=== PATIENT | female | born 1935 | race Caucasian/White ===

== ENCOUNTER 2016-05-26 16:48 | Inpatient (IN) | payer OTHER ==
[~2016-05-26] VITALS: Ht 170.2 cm; Wt 122.9 kg
[~2016-05-26 16:48] MED LIST: CALCIUM + D3 E1 EACH PO; CEFTIN500 MG PO; CENTRUM SILVER1 EAC3 PO; CIPRO500 MG PO; CLOTRIMAZOLE15 GM TP; COLACE CLEAR50 MG PO; COLACE100 MG PO; COLACE50 MG PO; COUMADIN1 MG PO; DIOVAN160 MG PO; HYZAAR 100-11 TABLET PO; HYZAAR 100-21 TABLET PO; IMDUR30 MG PO; KEFLEX500 MG PO; MEDROL DOSEPAK4 MG PO; PRAVACHOL20 MG PO; PRAVACHOL40 MG PO; SENNA-DOCUSATE1 EAC1 PO; SSD25GM TP; TAMOXIFEN CITRA20 MG PO; TRIAMTERENE-HC1 EACH PO; TYLENOL EXTRA500 MG PO; TYLENOL PM1 CAPLET PO; ULTRAM50 MG PO; VITAMIN D31000 UNIT PO; VITAMIN D32000 UNI1 PO; WARFARIN SODIUM1 MG PO; WARFARIN SODIUM5 MG PO
[2016-05-26 17:01] VITALS: BP 124/66
[2016-05-26 17:31] VITALS: BP 150/82
[2016-05-26 17:55] LABS: CARBON DIOXIDE (BICARBONATE) 32.2 MEQ/L (20-31)
[2016-05-26 18:04] LABS: INFLUENZA A VIRAL ANTIGEN POSITIVE; INFLUENZA B VIRAL ANTIGEN NEGATIVE
[2016-05-26 18:06] LABS: HEMATOCRIT 41.5 % (36.0-46.0); MCH 31.3 PG (29.0-34.0); MCHC 32.8 G/DL (30.0-36.0); MCV 95.6 FL (83-99); MEAN PLAT.VOLUME 10.3 uM^3 (9.5-12.4); PLATELET COUNT 164 K/uL (156-360); RBC DIS.WIDTH-CV 14.8 % (11.8-14.6); RBC DIS.WIDTH-SD 49.8 % (39-53); RED BLOOD COUNT 4.34 M/uL (3.80-5.20); WHITE BLOOD COUNT 5.7 K/uL (4.1-10.2)
[2016-05-26 18:31] VITALS: BP 85/69
[2016-05-26 18:36] LABS: TROP-I INTERPRETATION NEGATIVE; TROPONIN-I 0.01 ng/mL (0.0-0.30)
[2016-05-26 18:38] LABS: CHLORIDE 103 mEq/L (99-109); POTASSIUM 3.8 mEq/L (3.7-5.4); SODIUM 139 mEq/L (136-147)
[2016-05-26 18:40] LABS: GLUCOSE 125 mg/dL (70-99)
[2016-05-26 18:41] LABS: ANION GAP 11 MEQ/L (2-14)
[2016-05-26 18:43] LABS: GFR ESTIMATE (CALCULATED) > 59 mL/min/
[2016-05-26 18:44] LABS: UREA NITROGEN (BUN) 16 mg/dL (9-23)
[2016-05-26 18:45] LABS: ADD MIUA? YES; BILIRUBIN NEGATIVE; BLOOD LARGE; COLOR YELLOW ((YELLOW)); GLUCOSE (STRIP) NEGATIVE; KETONES 5; LEUKOCYTES LARGE; NITRITE POSITIVE; PROTEIN (STRIP) 30; SPECIFIC GRAVITY 1.021 (1.000-1.030); UROBILINOGEN 0.2 MG/DL (0.2-1.0)
[2016-05-26] MEDS ORDERED: TYLENOL EXTRA500 MG PO (18:46)
[2016-05-26] MEDS ORDERED: ROBITUSSIN100 MG/5 M PO (18:46)
[2016-05-26 19:03] LABS: BACTERIA 3+ /HPF; EPITHELIAL CELLS RARE /HPF; HYALINE CASTS 0-5 /LPF; MUCUS 1+ /LPF; RED BLOOD CELLS TNTC /HPF (0-5); UCUL ADDED? YES; WHITE BLOOD CELLS TNTC /HPF (0-5); WHITE BLOOD CELLS CLUMP MANY /HPF (0-5)
[2016-05-26 20:23] LABS: INTER. NORMALIZED RATIO 2.7; PROTHROMBIN TIME 28.2 (9.2-11.2)
[2016-05-26 21:52] VITALS: BP 141/71
[2016-05-27] VITALS: BP 131/63
[2016-05-27 04:14] VITALS: BP 126/83
[2016-05-27 06:47] LABS: HEMATOCRIT 41.2 % (36.0-46.0); MCH 29.8 PG (29.0-34.0); MCHC 30.6 G/DL (30.0-36.0); MCV 97.4 FL (83-99); MEAN PLAT.VOLUME 10.3 uM^3 (9.5-12.4); PLATELET COUNT 152 K/uL (156-360); RBC DIS.WIDTH-CV 15.4 % (11.8-14.6); RBC DIS.WIDTH-SD 54.7 % (39-53); RED BLOOD COUNT 4.23 M/uL (3.80-5.20); WHITE BLOOD COUNT 4.2 K/uL (4.1-10.2)
[2016-05-27 07:02] LABS: INTER. NORMALIZED RATIO 2.2; PROTHROMBIN TIME 23.4 (9.2-11.2)
[2016-05-27 07:06] LABS: ALKALINE PHOSPHATASE 61 IU/L (3-129); ANION GAP 7 MEQ/L (2-14); CHLORIDE 100 MEQ/L (99-109); GFR ESTIMATE (CALCULATED) 56 mL/min/; GLUCOSE 101 mg/dL (70-99); POTASSIUM 3.8 MEQ/L (3.7-5.4); SAMPLE HEMOLYSIS CHECK 0; SAMPLE ICTERIC CHECK 0; SAMPLE LIPEMIA CHECK 0; SODIUM 137 MEQ/L (136-147); TOTAL BILIRUBIN 0.8 MG/DL (0.0-1.0); UREA NITROGEN (BUN) 18 mg/dL (9-23)
[2016-05-27 07:51] VITALS: BP 144/63
[2016-05-27 16:00] VITALS: BP 138/62
[2016-05-27 19:32] VITALS: BP 99/50
[2016-05-27 23:50] VITALS: BP 134/60
[2016-05-28 03:54] VITALS: BP 144/60
[2016-05-28 07:32] VITALS: BP 142/63
[2016-05-28 08:04] LABS: INTER. NORMALIZED RATIO 2.4; PROTHROMBIN TIME 25.4 (9.2-11.2)
[2016-05-28 10:51] VITALS: BP 106/49
[2016-05-28 15:11] VITALS: BP 118/57
[2016-05-28 20:15] VITALS: BP 96/50
[2016-05-29] VITALS: BP 104/51
[2016-05-29 04:00] VITALS: BP 130/57
[2016-05-29 07:17] LABS: INTER. NORMALIZED RATIO 2.8; PROTHROMBIN TIME 29.4 (9.2-11.2)
[2016-05-29 07:51] VITALS: BP 118/58
[2016-05-29 11:15] VITALS: BP 94/51
[2016-05-29 15:12] VITALS: BP 98/58
[2016-05-30] VITALS: BP 118/56
[2016-05-30 07:34] LABS: INTER. NORMALIZED RATIO 3.2; PROTHROMBIN TIME 34.3 (9.2-11.2)
[2016-05-30] MEDS ORDERED: HYDROCHLOROTH12.5 M3 PO (08:18)
[2016-05-30] MEDS ORDERED: OSELTAMIVIR PHO75 MG PO (08:18)
[2016-05-30] MEDS ORDERED: AMOX TR-K CLV1 EAC4 PO (08:18)
[2016-05-30] MEDS ORDERED: DUONEB 2.5-0.5 M3 ML AEROSOL (08:23)
[2016-05-30 10:15] VITALS: BP 118/57
[2016-05-30 16:34] VITALS: BP 124/58
== END 2016-05-30 19:24 | disposition home health service (06) | DRG 194 ==
LOC: EME 16:48 → 5SOUTH 17:29 → EDOF 17:29 → 5SOUTH 21:52
PROVIDERS: Emergency Medicine; Nurse Practitioner Adult Health
DX: J10.1 Influenza due to other identified influenza virus with other respiratory manifestations (principal); N39.0 Urinary tract infection, site not specified; Z68.41 Body mass index [BMI] 40.0-44.9, adult; B96.20 Unspecified Escherichia coli [E. coli] as the cause of diseases classified elsewhere; J40 Bronchitis, not specified as acute or chronic; R09.02 Hypoxemia; R11.0 Nausea; L89.152 Pressure ulcer of sacral region, stage 2; I48.91 Unspecified atrial fibrillation; N20.0 Calculus of kidney; I10 Essential (primary) hypertension; E78.5 Hyperlipidemia, unspecified; M10.9 Gout, unspecified; K59.00 Constipation, unspecified; Z96.652 Presence of left artificial knee joint; E66.9 Obesity, unspecified; Z85.3 Personal history of malignant neoplasm of breast; Z87.891 Personal history of nicotine dependence; Z79.01 Long term (current) use of anticoagulants
CPT/HCPCS: 71010; 74176; 80048; 80053; 81003; 82803; 83605; 83880; 84484; 85027; 85610; 87040; 87077; 87086; 87186; 87502; 93005; 94640; 94640 76; 94799; 99202; 99281; 99284; J0696; J7050

== ENCOUNTER 2017-04-27 21:57 | Observation (INO) | payer OTHER ==
[~2017-04-27] VITALS: Ht 170.2 cm; Wt 103.4 kg
[~2017-04-27 21:57] MED LIST changes: +AMOX TR-K CLV1 EAC4 PO; +DUONEB 2.5-0.5 M3 ML AEROSOL; +HYDROCHLOROTH12.5 M3 PO; +OSELTAMIVIR PHO75 MG PO; +ROBITUSSIN100 MG/5 M PO; +TYLENOL PM EX-1 EACH PO
[2017-04-27 23:13] LABS: BASOPHIL (%) 0.4 % (0-1); EOSINOPHIL (%) 5.7 % (0-5); EOSINOPHIL COUNT 0.3 K/uL (0-0.3); HEMATOCRIT 44.3 % (36.0-46.0); HEMOGLOBIN 14.6 G/DL (11.9-15.5); IMMATURE GRANULOCYTE (%) 0.2 % (0.0-0.7); LYMPHOCYTE (%) 23.7 % (15-42); LYMPHOCYTE COUNT 1.1 K/uL (1.0-2.8); MCH 31.9 PG (29.0-34.0); MCV 96.9 FL (83-99); MONOCYTE (%) 7.2 % (3-12); MONOCYTE COUNT 0.3 K/uL (0-0.8); NEUTROPHIL (%) 62.8 % (45-76); NEUTROPHIL COUNT 2.9 K/uL (1.8-6.4); PLATELET COUNT 196 K/uL (156-360); RBC DIS.WIDTH-CV 14.8 % (11.8-14.6); RBC DIS.WIDTH-SD 53.1 % (39-53); RED BLOOD COUNT 4.57 M/uL (3.80-5.20); WHITE BLOOD COUNT 4.6 K/uL (4.1-10.2)
[2017-04-27 23:21] LABS: CHLORIDE 104 mEq/L (99-109); POTASSIUM 3.6 mEq/L (3.7-5.4); SODIUM 139 mEq/L (136-147)
[2017-04-27 23:22] LABS: INTER. NORMALIZED RATIO 2.2
[2017-04-27 23:23] LABS: GLUCOSE 115 mg/dL (70-99)
[2017-04-27 23:25] LABS: PTT 35.9 SEC (25-37)
[2017-04-27 23:27] LABS: GFR ESTIMATE (CALCULATED) 56 mL/min/
[2017-04-27 23:28] LABS: UREA NITROGEN (BUN) 20 mg/dL (9-23)
[2017-04-27 23:37] LABS: TROP-I INTERPRETATION NEGATIVE; TROPONIN-I 0.02 ng/mL (0.0-0.30)
[2017-04-28 06:09] LABS: HDL CHOLESTEROL 68 MG/DL (Desirable>=50); LDL CHOLESTEROL 39 mg/dL (Desirable<100); NON-HDL CHOLESTEROL 70 mg/dL (Desirable<160); TOTAL CHOLESTEROL 138 mg/dL (Desirable<200); TRIGLYCERIDES 154 MG/DL (Normal: <150)
[2017-04-28 08:34] LABS: THYROTROPIN (TSH) 2.7 MIU/L (0.4-5.5)
[2017-04-28] MEDS ORDERED: MULTI VITAMIN1 EACH PO (09:15)
[2017-04-28 13:21] LABS: HEMOGLOBIN A1c (GLYCOHEMOGLOB) 5.7 % (Below 5.7)
[2017-04-28 14:05] VITALS: BP 173/72
[2017-04-28 19:30] VITALS: BP 145/64
[2017-04-29] VITALS: BP 135/61
[2017-04-29 04:00] VITALS: BP 140/60
[2017-04-29 06:09] LABS: BASOPHIL (%) 0.5 % (0-1); EOSINOPHIL COUNT 0.2 K/uL (0-0.3); HEMATOCRIT 40.8 % (36.0-46.0); HEMOGLOBIN 13.4 G/DL (11.9-15.5); IMMATURE GRANULOCYTE (%) 0.2 % (0.0-0.7); LYMPHOCYTE (%) 19.6 % (15-42); LYMPHOCYTE COUNT 0.9 K/uL (1.0-2.8); MCH 32.1 PG (29.0-34.0); MCHC 32.8 G/DL (30.0-36.0); MCV 97.8 FL (83-99); MONOCYTE (%) 8.8 % (3-12); MONOCYTE COUNT 0.4 K/uL (0-0.8); NEUTROPHIL (%) 65.9 % (45-76); NEUTROPHIL COUNT 2.9 K/uL (1.8-6.4); PLATELET COUNT 173 K/uL (156-360); RBC DIS.WIDTH-CV 15.2 % (11.8-14.6); RBC DIS.WIDTH-SD 54.9 % (39-53); RED BLOOD COUNT 4.17 M/uL (3.80-5.20); WHITE BLOOD COUNT 4.4 K/uL (4.1-10.2)
[2017-04-29 06:34] LABS: CHLORIDE 103 MEQ/L (99-109); CREATININE 0.9 MG/DL (0.6-1.3); GFR ESTIMATE (CALCULATED) > 59 mL/min/; GLUCOSE 120 mg/dL (70-99); POTASSIUM 3.9 MEQ/L (3.7-5.4); SODIUM 137 MEQ/L (136-147); UREA NITROGEN (BUN) 16 mg/dL (9-23)
[2017-04-29 07:25] LABS: INTER. NORMALIZED RATIO 2.6
[2017-04-29 08:50] VITALS: BP 142/66
[2017-04-29] MEDS ORDERED: HYDROCHLOROTH12.5 M3 PO (13:35)
== END 2017-04-29 17:25 | disposition home or self-care (01) ==
LOC: EME 21:57 → EDOF 04-28 05:16 → 5WEST 04-28 05:16 → EDOF 04-28 05:16 → ENRESERV 04-28 05:18 → 5WEST 04-28 14:03
PROVIDERS: Emergency Medicine; Internal Medicine; Student in an Organized Health Care Education/Training Program
DX: R20.1 Hypoesthesia of skin (principal); R20.0 Anesthesia of skin; R53.1 Weakness; Z86.73 Personal history of transient ischemic attack (TIA), and cerebral infarction without residual deficits; I10 Essential (primary) hypertension; I48.91 Unspecified atrial fibrillation; Z79.01 Long term (current) use of anticoagulants; Z86.19 Personal history of other infectious and parasitic diseases; Z85.3 Personal history of malignant neoplasm of breast; I08.1 Rheumatic disorders of both mitral and tricuspid valves; E78.5 Hyperlipidemia, unspecified; E66.9 Obesity, unspecified; Z87.442 Personal history of urinary calculi; M10.9 Gout, unspecified; M19.90 Unspecified osteoarthritis, unspecified site; Z90.49 Acquired absence of other specified parts of digestive tract; Z90.710 Acquired absence of both cervix and uterus; Z96.652 Presence of left artificial knee joint; Z87.891 Personal history of nicotine dependence; Z82.49 Family history of ischemic heart disease and other diseases of the circulatory system
CPT/HCPCS: 70450; 71045; 80048; 80061; 83036; 83735; 84132; 84443; 84484; 85025; 85610; 85730; 93005; 93306; 93880; 99202; 99281; 99285; G0378; G8978 CL; G8979 CJ; G8980 GP CL; G8987 CK; G8988 GO CJ; G8989 GO CK; J1630